=== PATIENT | female | born 1955 | race Two or more races ===

== ENCOUNTER 2016-12-24 15:12 | Emergency (ER) | payer BC, OTHER ==
[2016-12-24 15:17] VITALS: RESP 18
[2016-12-24] MEDS ORDERED: RX INFO: IV CONTRAST WAS GIVEN 1 EACH MISC MISCELLANE PRN (15:51)
--- NOTE | 2016-12-24 15:55 | ED ---
General Adult HPI - General Chief complaint: Neck Pain/Injury Stated complaint: Lump on neck Time Seen by Provider: 12/24/16 15:36 Source: patient, RN notes reviewed Mode of arrival: ambulatory Limitations: no limitations - History of Present Illness Initial comments: Patient is a 61-year-old female who presents emergency room today with a chief complaint of tenderness and some swelling to the left side of her chest wall. Patient does not that she woke up this morning noticed that there was some tenderness when she was moving her left shoulder ROM. States that she's noticed some swelling around the left medial aspect of the clavicle. She states is tender to push on. Patient denies any other complaints or symptoms. Patient denies any recent fever, chills, shortness of breath, chest pain, back pain, abdominal pain, nausea or vomiting, numbness or tingling, dysuria or hematuria, constipation or diarrhea, headaches or visual changes, or any other complaints. - Related Data Home Medications Medication Instructions Recorded Confirmed Calcium Carbonate [Calcium] 600 mg PO DAILY 12/24/16 12/24/16 Cholecalciferol [Vitamin D3] 1,000 unit PO DAILY 12/24/16 12/24/16 Multivitamins, Thera [Multivitamin 1 tab PO DAILY 12/24/16 12/24/16 (formulary)] [place]-3 Fatty Acids [[place]-3] 1,000 mg PO DAILY 12/24/16 12/24/16 Thyroid,Pork [Nature-Throid] 146.25 mg PO DAILY 12/24/16 12/24/16 Previous Rx's Medication Instructions Recorded Cephalexin [Keflex] 500 mg PO Q12HR 10 Days cap 12/24/16 Ibuprofen [Motrin] 600 mg PO Q6HR PRN #40 day 12/24/16 Allergies Allergy/AdvReac Type Severity Reaction Status Date / Time Sulfa (Sulfonamide Allergy Swelling Verified 12/24/16 16:31 Antibiotics) Review of Systems ROS Statement: Those systems with pertinent positive or pertinent negative responses have been documented in the HPI. ROS Other: All systems not noted in ROS Statement are negative. Past Medical History Past Medical History: No Reported History History of Any Multi-Drug Resistant Organisms: None Reported Additional Past Surgical History / Comment(s): cervical fusion Past Psychological History: No Psychological Hx Reported Smoking Status: Never smoker Past Alcohol Use History: Occasional Past Drug Use History: None Reported General Exam - General Exam Comments Initial Comments: General: The patient is awake and alert, in no distress, and does not appear acutely ill. Eye: Pupils are equal, round and reactive to light, extra-ocular movements are intact. No nystagmus. There is normal conjunctiva bilaterally. No signs of icterus. Ears, nose, mouth and throat: There are moist mucous membranes and no oral lesions. Neck: The neck is supple, there is no tenderness or JVD. Cardiovascular: There is a regular rate and rhythm. No murmur, rub or gallop is appreciated. Respiratory: Lungs are clear to auscultation, respirations are non-labored, breath sounds are equal. No wheezes, stridor, rales, or rhonchi. Musculoskeletal: Normal ROM, no tenderness. Strength 5/5. Sensation intact. Pulses equal bilaterally 2+. Neurological: A&O x 3. CN II-XII intact, There are no obvious motor or sensory deficits. Coordination appears grossly intact. Speech is normal. Skin: Mild swelling appreciated to the medial aspect of left clavicle. locally Tender on palpation. Psychiatric: Cooperative, appropriate mood & affect, normal judgment. Limitations: no limitations Course Vital Signs 12/24/16 12/24/16 15:13 17:01 Temperature 97.5 F L 97.9 F Pulse Rate 80 70 Respiratory 18 18 Rate Blood Pressure 140/82 123/75 O2 Sat by Pulse 97 99 Oximetry Medical Decision Making - Medical Decision Making Patient's CT reviewed and does show asymmetric soft tissue swelling attenuation and surrounding the left sternoclavicular joint without measurable fluid collection. Findings is favored to represent inflammatory versus early infectious etiology. Case discussed in detail and seen by attending physician Dr. Torres. Patient reexamined at this time shows no signs of distress resting comfortably. Patient will placed on anti-inflammatories along with antibiotics advised follow-up with family doctor over the next 2 days or return here to the emergency room if any symptoms increase worsen or for any other concerns. - Lab Data Result diagrams: 12/24/16 16:05 12/24/16 16:05 Lab Results 12/24/16 12/24/16 Range/Units 16:05 16:05 WBC 8.6 (3.8-10.6) k/uL RBC 4.63 (3.80-5.40) m/uL Hgb 14.2 (11.4-16.0) gm/dL Hct 42.0 (34.0-46.0) % MCV 90.9 (80.0-100.0) fL MCH 30.7 (25.0-35.0) pg MCHC 33.8 (31.0-37.0) g/dL RDW 12.8 (11.5-15.5) % Plt Count 198 (150-450) k/uL Neutrophils % 57 % Lymphocytes % 34 % Monocytes % 5 % Eosinophils % 1 % Basophils % 0 % Neutrophils # 4.9 (1.3-7.7) k/uL Lymphocytes # 2.9 (1.0-4.8) k/uL Monocytes # 0.4 (0-1.0) k/uL Eosinophils # 0.1 (0-0.7) k/uL Basophils # 0.0 (0-0.2) k/uL Sodium 141 (137-145) mmol/L Potassium 4.1 (3.5-5.1) mmol/L Chloride 107 (98-107) mmol/L Carbon Dioxide 25 (22-30) mmol/L Anion Gap 9 mmol/L BUN 22 H (7-17) mg/dL Creatinine 0.90 (0.52-1.04) mg/dL Est GFR (MDRD) Af Amer >60 (>60 ml/min/1.73 sqM) Est GFR (MDRD) Non-Af >60 (>60 ml/min/1.73 sqM) Glucose 85 (74-99) mg/dL Calcium 9.6 (8.4-10.2) mg/dL Total Bilirubin 0.5 (0.2-1.3) mg/dL AST 23 (14-36) U/L ALT 32 (9-52) U/L Alkaline Phosphatase 75 (38-126) U/L Total Protein 7.9 (6.3-8.2) g/dL Albumin 4.8 (3.5-5.0) g/dL Disposition Clinical Impression: Sternoclavicular joint pain Narrative: Sternoclavicular inflammation Disposition: HOME SELF-CARE Condition: Stable Additional Instructions: Please use anti-inflammatories and antibiotics as prescribed and follow-up the family doctor over the next 2 days. Please return here to the emergency room if any symptoms increase or worsen or for any other concerns. Prescriptions: Cephalexin [Keflex] 500 mg PO Q12HR 10 Days cap Ibuprofen [Motrin] 600 mg PO Q6HR PRN #40 day PRN Reason: Pain Referrals: Juan Ramon Erazo MD [Primary Care Provider] - 1-2 days Time of Disposition: 17:08
[2016-12-24 16:13] LABS: Basophils % (A) 0 %; CH 30.7; CHCM 33.9; Eosinophils # (A) 0.1 k/uL (0-0.7); Eosinophils % (A) 1 %; HDW 2.33; HGB 14.2 gm/dL (11.4-16.0); Luc # (Auto) 0.25; Luc % (Auto) 3; Lymphocytes # (A) 2.9 k/uL (1.0-4.8); Lymphocytes % (A) 34 %; MCH 30.7 pg (25.0-35.0); MCHC 33.8 g/dL (31.0-37.0); MCV 90.9 fL (80.0-100.0); Mean Platelet Volume 8.1; Monocytes # (A) 0.4 k/uL (0-1.0); Monocytes % (A) 5 %; Neutrophils # (A) 4.9 k/uL (1.3-7.7); Neutrophils % (A) 57 %; RBC 4.63 m/uL (3.80-5.40); RDW 12.8 % (11.5-15.5); WBC 8.6 k/uL (3.8-10.6); WBC (Perox) 8.27
[2016-12-24 16:24] LABS: ALT 32 U/L (9-52); AST 23 U/L (14-36); Alkaline Phosphatase 75 U/L (38-126); Anion Gap 9 mmol/L; Blood Urea Nitrogen 22 mg/dL (7-17); Calcium 9.6 mg/dL (8.4-10.2); Carbon Dioxide 25 mmol/L (22-30); Chloride 107 mmol/L (98-107); Glucose 85 mg/dL (74-99); Non-African American GFR(MDRD) >60 (>60 ml/min/1.73 sqM); Potassium 4.1 mmol/L (3.5-5.1); Sodium 141 mmol/L (137-145); Total Bilirubin 0.5 mg/dL (0.2-1.3); Total Protein 7.9 g/dL (6.3-8.2)
--- NOTE | 2016-12-24 16:54 | CT ---
EXAMINATION TYPE: CT soft tissue neck w con DATE OF EXAM: 12/24/2016 HISTORY: Lump to left clavicle, marked by BB. COMPARISON: NONE CT DLP: 610.00 mGycm. Automated Exposure Control for Dose Reduction was Utilized. TECHNIQUE: CT scan of the neck is performed with IV Contrast, patient injected with 100 mL of Omnipa que 300, axial images are obtained, coronal and sagittal reformatted images are reviewed. FINDINGS: Airway: No gross abnormality seen. Parotid/submandibular glands: No gross abnormality seen. Carotid/Vascular Structures: Common carotid arteries, internal carotid arteries, and external carotid arteries and their proximal portions are patent. There is codominance of the vertebral arteries. No evidence of vertebral artery dissection. No aneurysm is identified. Osseous Structures: Paranasal sinuses are well aerated. Nasal septum appears midline. Mastoid air ashlee ls and middle ear cavities are also well aerated. Other: In the region of the patient's palpable abnormality at the sternoclavicular junction asymmetri c soft tissue density with no measurable fluid collection or overlying skin thickening. No osseous er osion is identified. Left subclavian vein is seen posterior to this. Cephalad to this there are few n onenlarged supraclavicular lymph nodes measuring up to 4 mm in short axis. Study of the internal jugular vein is also noted deep to the palpable abnormality. Thyroid gland is homogeneous other than a 4 mm right lobe low-density nodule. IMPRESSION: Asymmetric soft tissue in attenuation and surrounding the left sternoclavicular joint wit hout measurable fluid collection. Finding is favored to represent inflammatory versus early infectiou s etiology. This finding can be seen in arthropathy such as rheumatoid arthritis or in clinical syndr ome of SAPHO. Findings were discussed with the ordering ER physician.
[2016-12-24 17:02] VITALS: BP 123/75; PULSE 70; TEMP 97.9
== END 2016-12-24 17:19 | disposition home or self-care (01) ==
LOC: EC 15:12
DX: M25.512 Pain in left shoulder (principal); Z98.1 Arthrodesis status; Z88.2 Allergy status to sulfonamides; Z79.899 Other long term (current) drug therapy
CPT/HCPCS: 99284; 36415; 80053; 85025; 70491; Q9967

== ENCOUNTER → 2017-02-12 | Outpatient (CLI) | payer OTHER ==
--- NOTE | 2017-02-12 15:29 | MR ---
MR left clavicle HISTORY: Pain, soft tissue mass Correlation to CT soft tissue neck 12/24/2016 There is an overlying marker at the site of the sternoclavicular joint on the left. Fluid is seen at the level of the joint as noted on patient's prior CT. There is no significant erosion present. No ev ident fracture, some marginal spurring noted at the inferior aspect of the clavicle. No significant a denopathy. Fluid surrounds the articular disc on the coronal image. Some minimal subchondral marrow e dre present at the cephalad margin of the clavicle at the level of the joint. Acromioclavicular joint arthropathy changes noted incidentally. Small nodes are present in the suprac lavicular location as noted on CT. Some minimal fluid signal also present at the junction of the ante rior first rib and manubrium. IMPRESSION: Findings may represent osteoarthritis, inflammatory arthropathy of the sternoclavicular j oint, infection not excluded but thought to be less likely, correlate.
== END | disposition home or self-care (01) ==
LOC: RADMRIMAIN 08:12
PROVIDERS: ATTEND Family Medicine
DX: R22.9 Localized swelling, mass and lump, unspecified (principal); M54.2 Cervicalgia
CPT/HCPCS: 82565; 71552; A9581